=== PATIENT | female | born 1970 | race Caucasian/White ===

== ENCOUNTER 2022-03-12 09:18 | Emergency (ER) | payer OTHER ==
[~2022-03-12] VITALS: Ht 167.6 cm; Wt 64.0 kg
[2022-03-12 09:27] VITALS: BP 134/86
[2022-03-12 10:23] LABS: BASOPHILS % (AUTO) 0.2 % (0.0-2.0); EOSINOPHILS % (AUTO) 0.2 % (0.0-6.0); HEMATOCRIT 39 % (33-45); LYMPHOCYTES # (AUTO) 1.5 K/uL (0.8-4.8); LYMPHOCYTES % (AUTO) 18.9 % (20.0-44.0); MEAN CORPUSCULAR HGB CONC 33 g/dl (31.0-36.0); MEAN CORPUSCULAR VOLUME 90 fL (82-100); MONOCYTES # (AUTO) 0.6 K/uL (0.1-1.30); MONOCYTES % (AUTO) 7.4 % (2.0-12.0); NEUTROPHILS # (AUTO) 5.8 K/uL (1.8-8.9); NEUTROPHILS % (AUTO) 73.3 % (43.0-81.0); PLATELET COUNT (AUTO) 268 K/uL (150-450); RED BLOOD CELL COUNT(AUTO) 4.37 MIL/uL (4.0-5.2); WHITE BLOOD COUNT (AUTO) 7.9 K/uL (4.3-11.0)
[2022-03-12 10:39] LABS: BILIRUBIN,URINE NEGATIVE (NEGATIVE); COLOR,URINE YELLOW (YELLOW); LEUKOCYTE ESTERASE ,URINE SMALL (NEGATIVE); NITRITE, URINE NEGATIVE (NEGATIVE); PROTEIN,URINE NEGATIVE (NEGATIVE); UGLUCOSE NEGATIVE (NEGATIVE); UROBILINOGEN,URINE 0.2 EU/dL (0.2)
[2022-03-12 11:03] LABS: ALANINE AMINOTRANSFERASE 35 U/L (12-78); ALBUMIN 3.6 g/dL (3.4-5.0); ALCOHOL, BLOOD < 3 mg/dL (0-0); ALKALINE PHOSPHATASE 80 U/L (46-116); ASPARTATE AMINOTRANSFERASE 15 U/L (15-37); BILIRUBIN,DIRECT 0.1 mg/dL (0.0-0.2); BILIRUBIN,TOTAL 0.4 mg/dL (0.2-1.0); CALCIUM, SERUM 9.2 mg/dL (8.5-10.1); CARBON DIOXIDE 31 mmol/L (21-32); CHLORIDE 107 mmol/L (98-107); CREATININE 0.5 mg/dL (0.6-1.3); GLUCOSE 103 mg/dL (74-106); POTASSIUM 3.6 mmol/L (3.5-5.1); SODIUM SERUM 143 mmol/L (136-145); UREA NITROGEN, BLOOD 8 mg/dL (7-18)
[2022-03-12 11:06] LABS: BACTERIA,URINE Rare /HPF (None Seen); RBC,URINE 0-2 /HPF (0-2); SQUAMOUS EPITHELIAL CELL,UR Few /HPF (None Seen)
[2022-03-12 11:10] LABS: ACETAMINOPHEN 0 ug/ml (10-30)
--- NOTE | 2022-03-12 12:16 | NUR ---
SW called [employer], Art [phone] [place] and left voicemail requesting evalution of this 51 year old female. The pt. is alert & oriented x 4 and makes good eye contact. The pt. appears well groomed andhas pressured tangential speech. The pt. verbalizes complaints of insomnia, headache, &nausea. However, per MD note, the reports that the pt. has been having auditory hallucinations and acting bizarre for the past few weeks and the PCP recommended psychiatric evaluation. Per EMR, pt. has been prescribed seroquel by PCP adn pt. states it has not helped her sleep better. JODY discussed with Dr. Rehman.
--- NOTE | 2022-03-12 12:28 | NUR ---
CALLED ART [phone]
[2022-03-12] MEDS ORDERED: ZOLP5TAB2 PO (12:56)
--- NOTE | 2022-03-12 13:18 | NUR ---
Noy MOELLER LCSW AT BEDSIDE
--- NOTE | 2022-03-12 13:30 | NUR ---
SEEN BY SUNNI TRENT, CLEARED FOR DISCHARGE
--- NOTE | 2022-03-12 13:31 | NUR ---
Patient discharged to home in stable condition. Written and verbal after care instructions given. Patient verbalizes understanding of instruction.
--- NOTE | 2022-03-12 13:31 | NUR ---
cleared by Art, LINE PALLETIZER
== END 2022-03-12 13:32 | disposition home or self-care (01) ==
LOC: ER 09:21
DX: R44.0 Auditory hallucinations (principal); G47.00 Insomnia, unspecified; Z88.0 Allergy status to penicillin; Z79.899 Other long term (current) drug therapy
CPT/HCPCS: 36415; 70450-TC; 80048-TC; 80076-TC; 81001; 85025-TC; 87086-TC; G0480